=== PATIENT | female | born 1985 | race Caucasian/White ===

== ENCOUNTER 2017-04-19 04:56 | Emergency (ER) | payer MEDICAID ==
[~2017-04-19] VITALS: Ht 170.2 cm; Wt 85.1 kg
[2017-04-19 05:00] VITALS: BP 145/85; PULSE 85; RESP 18; TEMP 98.2; O2SAT 98
--- NOTE | 2017-04-19 06:19 | PD ---
HPI Chief Complaint: Chest Pain Time Seen by Provider: 06:12 Travel History International Travel<30 days: No Contact w/Intl Traveler<30days: No Traveled to known affect area: No History of Present Illness HPI The patient is a 31-year-old female that complains of some sternal chest pain in the midsternum. After stretching yesterday. The pain also goes to the right infrascapular region. The patient for the last 2 weeks as worked a more vigorous job where she is on her feet frequently. She does have a history of spina bifida and needs arm crutches to ambulate. The patient does drink a lot of iced tea as well as shari. She states there is no possibility of . The pain hurts mainly with movement and she denies any nausea, diaphoresis or radiation of pain. She denies any shortness of breath. The pain is sharp And the intensity is 5/10. She denies any palpitations or syncopal or near syncopal spells. The patient has a NIGHT NURSE shunt, she denies any headache. PFSH Past Medical History High Cholesterol: Yes Diminished Hearing: No Musculoskeletal: Yes (Spina Bifida) Influenza Vaccination: No ?: Not LMP: 03/31/17 Past Surgical History Neurologic Surgery: Yes (Mult surgeries including shunt) Social History Alcohol Use: No Tobacco Use: No Substance Use: No Allergies-Medications (Allergen,Severity, Reaction): Coded Allergies: latex (Unverified Allergy, Severe, 10/31/16) Reported Meds & Prescriptions Reported Meds & Active Scripts Active Ibuprofen 600 Mg Tab 600 Mg PO TID Review of Systems Except as stated in HPI: all other systems reviewed are Neg Physical Exam Narrative GENERAL: The patient is alert, oriented 3 in slight apparent distress with her sternal chest discomfort. Her vital signs show blood pressure 145/85 but are otherwise normal. SKIN: Focused skin assessment warm/dry. HEAD: Atraumatic. Normocephalic. EYES: Pupils equal and round. No scleral icterus. No injection or drainage. ENT: No nasal bleeding or discharge. Mucous membranes pink and moist. NECK: Trachea midline. No JVD. CARDIOVASCULAR: Regular rate and rhythm. No murmur appreciated. RESPIRATORY: No accessory muscle use. Clear to auscultation. Breath sounds equal bilaterally. GASTROINTESTINAL: Abdomen soft, non-tender, nondistended. Hepatic and splenic margins not palpable. MUSCULOSKELETAL: No obvious deformities. No clubbing. No cyanosis. No edema. The lumbar spine shows previous surgery, she states L4-L5 have had fairly extensive surgery. No scoliosis is seen. I can completely reproduce the patient's pain by pressing on the midsternal area where the patient perceives her pain. I can also reproduce the pain in the infrascapular region on the right by palpating the muscles. NEUROLOGICAL: Awake and alert. No obvious cranial nerve deficits. Motor grossly within normal limits. Normal speech. PSYCHIATRIC: Appropriate mood and affect; insight and judgment normal. Data Data Last Documented VS Vital Signs Date Time Temp Pulse Resp B/P (MAP) Pulse Ox O2 Delivery O2 Flow Rate FiO2 04/19/17 06:54 16 95 Room Air 04/19/17 06:52 98.5 95 153/69 (97) Orders Orders Basic Metabolic Panel (Bmp) (04/19/17 06:19) Complete Blood Count With Diff (04/19/17 06:19) Troponin I (04/19/17 06:19) Chest, Pa & Lat (04/19/17 06:19) Labs Laboratory Tests Test 04/19/17 06:43 White Blood Count 8.6 TH/MM3 Red Blood Count 4.92 MIL/MM3 Hemoglobin 14.5 GM/DL Hematocrit 45.0 % Mean Corpuscular Volume 91.6 FL Mean Corpuscular Hemoglobin 29.5 PG Mean Corpuscular Hemoglobin Concent 32.2 % Red Cell Distribution Width 12.7 % Platelet Count 387 TH/MM3 Mean Platelet Volume 7.2 FL Neutrophils (%) (Auto) 72.6 % Lymphocytes (%) (Auto) 16.3 % Monocytes (%) (Auto) 6.0 % Eosinophils (%) (Auto) 3.1 % Basophils (%) (Auto) 2.0 % Neutrophils # (Auto) 6.2 TH/MM3 Lymphocytes # (Auto) 1.4 TH/MM3 Monocytes # (Auto) 0.5 TH/MM3 Eosinophils # (Auto) 0.3 TH/MM3 Basophils # (Auto) 0.2 TH/MM3 CBC Comment DIFF FINAL Differential Comment Blood Urea Nitrogen 8 MG/DL Creatinine 0.74 MG/DL Random Glucose 115 MG/DL Calcium Level 8.4 MG/DL Sodium Level 140 MEQ/L Potassium Level 3.8 MEQ/L Chloride Level 108 MEQ/L Carbon Dioxide Level 26.3 MEQ/L Anion Gap 6 MEQ/L Estimat Glomerular Filtration Rate 92 ML/MIN Troponin I LESS THAN 0.02 NG/ML MDM Medical Decision Making Medical Screen Exam Complete: Yes Emergency Medical Condition: Yes Medical Record Reviewed: Yes Interpretation(s) The EKG shows sinus tachycardia of 103 with frequent ectopic premature complexes. The PMI lateral chest x-ray shows no active disease. Shunt tubing overlies anterior chest and lateral right chest extending into right upper quadrant. The CBC is normal. The troponin I is normal. Except for a calcium of 8.4, the basic metabolic profile is unremarkable. Differential Diagnosis Costochondritis, acute coronary syndrome-unlikely, muscle strain Narrative Course The patient likely has a muscle strain and this is likely related to the more vigorous work that she does. The patient states she is actively looking for a different job that does not require is much ambulating. Diagnosis Primary Impression: Musculoskeletal pain Additional Impression: Premature atrial contractions Additional Instructions: As we discussed, decrease the amount of tea and shari in your diet to reduce the stimulants acting on her heart. Med/Other Pt SpecificInfo: Prescription(s) given Scripts Ibuprofen (Ibuprofen) 600 Mg Tab 600 MG PO TID, #44 TAB 0 Refills Prov: Thiago Figueroa MD 04/19/17 Disposition: 01 DISCHARGE HOME Condition: Stable Thiago Figueroa MD Apr 19, 2017 06:19
--- NOTE | 2017-04-19 06:47 | RADRPT ---
EXAM DATE/TIME: 04/19/2017 06:26 [facility] COMPARISON: No previous studies available for comparison. INDICATIONS : Chest pain. MEDICAL HISTORY : Spina bifida. SURGICAL HISTORY : Shunt. ENCOUNTER: Initial ACUITY: 2 days PAIN SCORE: 5/10 LOCATION: Bilateral chest FINDINGS: PA and lateral views of the chest demonstrate the lungs to be symmetrically aerated without evidence of mass, infiltrate or effusion. The cardiomediastinal contours are unremarkable. Osseous structure s are intact. CONCLUSION: 1. No active disease. Shunt tubing overlies anterior chest and lateral right chest extending into rig ht upper quadrant. Ean Floyd MD on April 19, 2017 at 6:43 Board Certified Radiologist. This report was verified electronically.
[2017-04-19 06:48] LABS: AUTOMATED NEUTROPHIL # 6.2 TH/MM3 (1.8-7.7); BASOPHIL # 0.2 TH/MM3 (0-0.2); EOSINOPHIL # 0.3 TH/MM3 (0-0.4); EOSINOPHIL % 3.1 % (0.0-4.0); HEMOGLOBIN 14.5 GM/DL (11.6-15.3); LYMPH % 16.3 % (9.0-44.0); LYMPHOCYTE # 1.4 TH/MM3 (1.0-4.8); MEAN CELL VOLUME 91.6 FL (80.0-100.0); MEAN CORPUSCULAR HEMOGLOBIN 29.5 PG (27.0-34.0); MEAN CORPUSCULAR HGB CONC 32.2 % (32.0-36.0); MEAN PLATELET VOLUME 7.2 FL (7.0-11.0); MONOCYTE # 0.5 TH/MM3 (0-0.9); NEUT % 72.6 % (16.0-70.0); PLATELET COUNT 387 TH/MM3 (150-450); RED BLOOD COUNT 4.92 MIL/MM3 (4.00-5.30); RED CELL DISTRIBUTION WIDTH 12.7 % (11.6-17.2); WHITE BLOOD COUNT 8.6 TH/MM3 (4.0-11.0)
[2017-04-19 06:52] VITALS: BP 153/69; PULSE 95; RESP 16; TEMP 98.5; O2SAT 95
[2017-04-19 06:57] LABS: CHLORIDE 108 MEQ/L (98-107); SODIUM (NA) 140 MEQ/L (136-145)
[2017-04-19 07:00] LABS: BICARBONATE 26.3 MEQ/L (21.0-32.0); CALCIUM 8.4 MG/DL (8.5-10.1)
[2017-04-19 07:01] LABS: BLOOD UREA NITROGEN 8 MG/DL (7-18); GLUCOSE,RANDOM 115 MG/DL (74-106)
[2017-04-19 07:04] LABS: CREATININE 0.74 MG/DL (0.50-1.00); GLOMERULAR FILTRATION RATE 92 ML/MIN (>89)
[2017-04-19] MEDS ORDERED: IBUP-232 PO (07:04)
[2017-04-19 07:08] LABS: TROPONIN I LESS THAN 0.02 NG/ML (0.02-0.05)
--- NOTE | 2017-04-19 08:14 | EKG ---
Date Performed: 04/19/2017 Time Performed: 05:02:05 PTAGE: 31 years EKG: SINUS TACHYCARDIA WITH FREQUENT ECTOPIC PREMATURE COMPLEXES POSSIBLE LEFT ATRIAL ENLARGEMEN T ABNORMAL RHYTHM ECG Compared to prior electrocardiogram, Premature atrial contraction are now prese nt NO PREVIOUS TRACING DOCTOR: Yuri Mcgregor Interpretating Date/Time 04/19/2017 08:14:02
== END 2017-04-19 07:22 | disposition home or self-care (01) ==
LOC: PHED 04:56
DX: M79.1 Myalgia (principal); I49.1 Atrial premature depolarization; E78.00 Pure hypercholesterolemia, unspecified; Q05.9 Spina bifida, unspecified; Z98.2 Presence of cerebrospinal fluid drainage device
CPT/HCPCS: 71046; 80048; 84484; 85025; 93005; 99285